=== PATIENT | male | born 1965 | race Caucasian/White ===

== ENCOUNTER 2023-03-25 19:12 | Emergency (ER) | payer OTHER ==
[~2023-03-25] VITALS: Ht 182.9 cm; Wt 142.9 kg
[~2023-03-25 19:12] MED LIST: ABIRATERONE AC250 MG PO; AMOCLA875 PO; AZIT250 PO; LOSA50 PO; MIRT15 PO; PRED5 PO; SIMV40 PO; TOPI50 PO; VENL75ER PO
[2023-03-25 19:41] LABS: BASOPHILS ABSOLUTE AUTO 0.02 K/mm3 (0.00-0.23); BASOPHILS PERCENT AUTO 0 % (0-2); EOSINOPHILS ABSOLUTE AUTO 0.05 K/mm3 (0.00-0.68); EOSINOPHILS PERCENT AUTO 1 % (0-6); Hematocrit 43.1 % (37.0-53.0); Hemoglobin 15.1 g/dL (13.5-17.5); IMMATURE GRAN ABSOLUTE AUTO 0.02 K/mm3 (0.00-0.10); IMMATURE GRAN PERCENT AUTO 0 % (0-1); LYMPHOCYTES ABSOLUTE AUTO 1.79 K/mm3 (0.84-5.20); LYMPHOCYTES PERCENT AUTO 19 % (21-46); MONOCYTES ABSOLUTE AUTO 0.86 K/mm3 (0.16-1.47); MONOCYTES PERCENT AUTO 9 % (4-13); Mean Corpuscular Volume 89 fL (80-100); Mean Platelet Volume 10.3 fL (9.1-12.4); NEUTROPHILS ABSOLUTE AUTO 6.59 K/mm3 (1.96-9.15); NEUTROPHILS PERCENT AUTO 71 % (41-73); Platelet Count 305 K/mm3 (150-400); RDW Coefficient Variation 12.7 % (11.7-14.2); RDW Standard Deviation 41.1 fL (35.1-46.3); Red Blood Cell Count 4.87 M/mm3 (4.30-5.90); White Blood Cell Count 9.33 K/mm3 (4.00-11.30)
[2023-03-25 20:01] LABS: Albumin, Blood 3.8 g/dL (3.4-5.0); Albumin/Globulin Ratio 1.1 (0.8-1.8); Bilirubin, Total 0.4 mg/dL (0.1-1.0); Bun/Creatinine Ratio 12.5 (12.0-20.0); Calcium, Blood 9.4 mg/dL (8.5-10.1); Creatinine, Blood 0.8 mg/dL (0.60-1.20); Globulin, Blood 3.6 g/dL (2.2-4.0); Potassium, Blood 3.9 mmol/L (3.5-5.5); Total Protein, Blood 7.4 g/dL (6.4-8.2)
[2023-03-25 21:30] VITALS: BP 144/95
[2023-03-25 22:09] LABS: Thyroid Stimulating Hormone 1.11 uIU/mL (0.360-4.800)
== END 2023-03-25 22:45 | disposition home or self-care (01) ==
LOC: ER 19:12
PROVIDERS: Emergency Medicine
DX: R53.1 Weakness (principal); I10 Essential (primary) hypertension; Z85.46 Personal history of malignant neoplasm of prostate; Z79.52 Long term (current) use of systemic steroids; Z79.899 Other long term (current) drug therapy
CPT/HCPCS: 71046; 80053; 84443; 84484; 85025; J7030

== ENCOUNTER 2023-10-20 19:17 | Emergency (ER) | payer OTHER ==
[~2023-10-20] VITALS: Ht 182.9 cm; Wt 145.2 kg
[~2023-10-20 19:17] MED LIST changes: +Ativan1 MG PO; +OLANZAPINE5 M1 PO; +OXYC5 PO
[2023-10-20 19:19] VITALS: BP 158/105
[2023-10-20 19:50] LABS: BASOPHILS ABSOLUTE AUTO 0.03 K/mm3 (0.00-0.23); BASOPHILS PERCENT AUTO 0 % (0-2); EOSINOPHILS ABSOLUTE AUTO 0.02 K/mm3 (0.00-0.68); EOSINOPHILS PERCENT AUTO 0 % (0-6); Hemoglobin 14.5 g/dL (13.5-17.5); IMMATURE GRAN ABSOLUTE AUTO 0.05 K/mm3 (0.00-0.10); IMMATURE GRAN PERCENT AUTO 0 % (0-1); LYMPHOCYTES PERCENT AUTO 13 % (21-46); MONOCYTES ABSOLUTE AUTO 0.94 K/mm3 (0.16-1.47); MONOCYTES PERCENT AUTO 7 % (4-13); Mean Corpuscular HGB 30.8 pg (26.0-34.0); Mean Corpuscular HGB Conc 34.5 g/dL (31.5-36.5); Mean Corpuscular Volume 89 fL (80-100); Mean Platelet Volume 9.9 fL (9.1-12.4); NEUTROPHILS PERCENT AUTO 79 % (41-73); Platelet Count 356 K/mm3 (150-400); RDW Coefficient Variation 12.4 % (11.7-14.2); RDW Standard Deviation 40.7 fL (35.1-46.3); Red Blood Cell Count 4.71 M/mm3 (4.30-5.90); White Blood Cell Count 12.84 K/mm3 (4.00-11.30)
== END 2023-10-20 20:31 | disposition home or self-care (01) ==
LOC: ER 19:17
PROVIDERS: Student in an Organized Health Care Education/Training Program
DX: R21 Rash and other nonspecific skin eruption (principal); I10 Essential (primary) hypertension; E03.9 Hypothyroidism, unspecified
CPT/HCPCS: 85025; 99283

== ENCOUNTER 2024-04-05 22:16 | Inpatient (IN) | payer OTHER ==
[~2024-04-05] VITALS: Ht 182.9 cm; Wt 151.2 kg
[~2024-04-05 22:16] MED LIST changes: +Adipex-P37.5 M1 PO; +EUTHYROX175 MC1 PO; +Enoxaparin 40 MG/0.4 ML SYR SC SCH; +Etomidate 2MG / ML 10ML Vial IV ONE; +OMEP20ER PO; +Rocuronium Bromide 10 MG/ML 5ML Injection IV ONE; +SOLIFENACIN SUCC5 MG PO
[2024-04-05] MEDS ORDERED: NS 1,000 ML IV ONE ×2 (22:20→23:35)
[2024-04-05] MEDS ORDERED: Magnesium Sulf 2 GM/Water 50ML 50 ML IV ONE (22:30)
[2024-04-05] MEDS ORDERED: NS 1,000 ML IV SCH (22:30)
[2024-04-05] MEDS ORDERED: DiphenhydrAMINE HCl 50 MG/ML 1ML Vial IV ONE (22:30)
[2024-04-05 22:34] LABS: BASOPHILS ABSOLUTE AUTO 0.04 K/mm3 (0.00-0.23); BASOPHILS PERCENT AUTO 0 % (0-2); EOSINOPHILS ABSOLUTE AUTO 0.14 K/mm3 (0.00-0.68); EOSINOPHILS PERCENT AUTO 1 % (0-6); Hematocrit 40.4 % (37.0-53.0); Hemoglobin 13.7 g/dL (13.5-17.5); IMMATURE GRAN ABSOLUTE AUTO 0.05 K/mm3 (0.00-0.10); IMMATURE GRAN PERCENT AUTO 0 % (0-1); LYMPHOCYTES ABSOLUTE AUTO 3.31 K/mm3 (0.84-5.20); LYMPHOCYTES PERCENT AUTO 26 % (21-46); MONOCYTES PERCENT AUTO 10 % (4-13); Mean Corpuscular HGB 31.6 pg (26.0-34.0); Mean Corpuscular HGB Conc 33.9 g/dL (31.5-36.5); Mean Corpuscular Volume 93 fL (80-100); Mean Platelet Volume 9.9 fL (9.1-12.4); NEUTROPHILS PERCENT AUTO 62 % (41-73); Platelet Count 296 K/mm3 (150-400); RDW Coefficient Variation 13.5 % (11.7-14.2); RDW Standard Deviation 46.1 fL (35.1-46.3); Red Blood Cell Count 4.34 M/mm3 (4.30-5.90); White Blood Cell Count 12.54 K/mm3 (4.00-11.30)
[2024-04-05 22:35] LABS: Calcium, Ionized (POC) 1.09 mmol/L (1.10-1.46); Chloride (POC) 103 mmol/L (98-108); Creatinine (POC) 1.3 mg/dL (0.8-1.3); Glucose (ISTAT POC) 119 mg/dL (70-99); Hemoglobin (POC) 14.6 g/dL (13.5-17.5); Potassium (POC) 3.6 mmol/L (3.5-5.5); Sodium (POC) 135 mmol/L (135-148); Total CO2 (POC) 20 mmol/L (21-32)
[2024-04-05] MEDS ORDERED: propofoL 100 ML IV ONE (22:40)
[2024-04-05 22:56] LABS: Ethanol (Alcohol), Blood, Med 6 mg/dL; Salicylate <1.7 mg/dL (2.8-20.0)
[2024-04-05 23:01] LABS: Acetaminophen, Random <2.0 ug/mL (10.0-30.0); Alanine Aminotransfer (ALT/SGP 23 U/L (12-78); Albumin, Blood 3.4 g/dL (3.4-5.0); Albumin/Globulin Ratio 0.8 (0.8-1.8); Alk Phos 148 U/L (50-136); Anion Gap 13 mmol/L (3-11); Aspartate Aminotrans (AST/SGOT 16 U/L (12-37); Bilirubin, Total 0.3 mg/dL (0.1-1.0); Blood Urea Nitrogen 29 mg/dL (8-24); Bun/Creatinine Ratio 25.2 (12.0-20.0); CO2, Blood 21 mmol/L (21-32); Calcium, Blood 8.8 mg/dL (8.5-10.1); Chloride, Blood 107 mmol/L (98-108); Creatinine, Blood 1.15 mg/dL (0.60-1.20); Globulin, Blood 4.1 g/dL (2.2-4.0); Glomerular Filtration Rate 73 (60-); Glucose, Blood 122 mg/dL (70-99); Potassium, Blood 3.6 mmol/L (3.5-5.5); Sodium, Blood 137 mmol/L (136-145); Total Protein, Blood 7.5 g/dL (6.4-8.2)
[2024-04-05 23:15] LABS: Source, Urine Clean Catch
[2024-04-05] MEDS ORDERED: Calcium Carbon500 MG PO (23:15)
[2024-04-05 23:18] LABS: Bilirubin, Urine Neg (Neg); Blood, Urine 5+ (Neg); Glucose Qualitative, Urine Neg (Neg); Ketones, Urine Neg (Neg); Leukocyte Esterase, Urine Neg (Neg); Nitrite, Urine Neg (Neg); Protein, Urine Neg (Neg); Specific Gravity, Urine 1.015 (1.003-1.022); Urobilinogen, Urine NORM (Normal); pH, Urine 6.5 (5.0-8.0)
[2024-04-05] MEDS ORDERED: PRED5 PO (23:18)
[2024-04-05] MEDS ORDERED: Charcoal 25 GM/120 ML Aqueous PO ONE (23:20)
[2024-04-05 23:26] LABS: Appearance, Urine Clear (Clear); Color, Urine Pale Yellow (P-Yellow)
[2024-04-05 23:27] LABS: Bacteria Rare /hpf; Squamous Epithelial Cells Rare /hpf (Few); White Blood Cells, Urine 0-2 /hpf (0-5)
[2024-04-05] MEDS ORDERED: Ondansetron HCl 2 MG / ML 2ML Vial IV PRN (23:35)
[2024-04-05 23:45] LABS: U Amphetamine Screen DETECTED; U Barbituate Screen Not Detected; U Benzodiazapine Screen Not Detected; U Buprenorphine Screen Not Detected; U Cannabinoids Screen Not Detected; U Cocaine Screen Not Detected; U Methadone Screen Not Detected; U Methamphetamine Screen Not Detected; U Opiates Screen Not Detected; U Oxycodone Screen Not Detected; U Phencyclidine Screen Not Detected
[2024-04-05] MEDS ORDERED: Aspir 8181 MG PO (23:58)
[2024-04-05] MEDS ORDERED: VITAMIN D31000 UNI1 PO (23:59)
[2024-04-06] VITALS (56 sets, daily range): BP systolic 82–146; BP diastolic 58–98
[2024-04-06 00:07] LABS: BASOPHILS ABSOLUTE AUTO 0.03 K/mm3 (0.00-0.23); BASOPHILS PERCENT AUTO 0 % (0-2); EOSINOPHILS ABSOLUTE AUTO 0.11 K/mm3 (0.00-0.68); EOSINOPHILS PERCENT AUTO 1 % (0-6); Hematocrit 36.8 % (37.0-53.0); Hemoglobin 12.5 g/dL (13.5-17.5); IMMATURE GRAN ABSOLUTE AUTO 0.08 K/mm3 (0.00-0.10); IMMATURE GRAN PERCENT AUTO 1 % (0-1); LYMPHOCYTES ABSOLUTE AUTO 2.21 K/mm3 (0.84-5.20); LYMPHOCYTES PERCENT AUTO 18 % (21-46); MONOCYTES ABSOLUTE AUTO 1.11 K/mm3 (0.16-1.47); MONOCYTES PERCENT AUTO 9 % (4-13); Mean Corpuscular HGB 31.3 pg (26.0-34.0); Mean Corpuscular Volume 92 fL (80-100); Mean Platelet Volume 10.1 fL (9.1-12.4); NEUTROPHILS ABSOLUTE AUTO 8.57 K/mm3 (1.96-9.15); NEUTROPHILS PERCENT AUTO 71 % (41-73); Platelet Count 285 K/mm3 (150-400); RDW Coefficient Variation 13.6 % (11.7-14.2); RDW Standard Deviation 46.3 fL (35.1-46.3); Red Blood Cell Count 3.99 M/mm3 (4.30-5.90); White Blood Cell Count 12.11 K/mm3 (4.00-11.30)
[2024-04-06 00:15] LABS: International Normalized Ratio 0.94; Prothrombin Time Results 10.1 Sec (9.7-11.5)
[2024-04-06 00:29] LABS: Ethanol (Alcohol), Blood, Med 6 mg/dL; Free Thyroxine 1.58 ng/dL (0.70-1.60); Magnesium, Blood 2.1 mg/dL (1.6-2.4); Salicylate <1.7 mg/dL (2.8-20.0)
[2024-04-06 00:31] LABS: Acetaminophen, Random <2.0 ug/mL (10.0-30.0); Alanine Aminotransfer (ALT/SGP 20 U/L (12-78); Albumin, Blood 3.1 g/dL (3.4-5.0); Albumin/Globulin Ratio 0.8 (0.8-1.8); Alk Phos 125 U/L (50-136); Anion Gap 14 mmol/L (3-11); Aspartate Aminotrans (AST/SGOT 31 U/L (12-37); Bilirubin, Total 0.5 mg/dL (0.1-1.0); Blood Urea Nitrogen 27 mg/dL (8-24); CO2, Blood 19 mmol/L (21-32); Calcium, Blood 8.1 mg/dL (8.5-10.1); Chloride, Blood 108 mmol/L (98-108); Creatinine, Blood 0.97 mg/dL (0.60-1.20); Globulin, Blood 3.7 g/dL (2.2-4.0); Glomerular Filtration Rate 89 (60-); Glucose, Blood 145 mg/dL (70-99); Potassium, Blood 3.7 mmol/L (3.5-5.5); Sodium, Blood 137 mmol/L (136-145); Total Protein, Blood 6.8 g/dL (6.4-8.2)
[2024-04-06] MEDS ORDERED: propofoL 100 ML IV SCH (01:35)
--- NOTE | 2024-04-06 02:19 | NUR ---
ASSUMED CARE PT WAS BROUGHT TO ICU FROM ED AT 0120. PT INTUBATED AND SEDATED. PROPOFOL GTT INFUSING, SEE FLOWSHEET. WHEN MOVING PT FROM GURNEY TO BED PT ATTEMPTING TO REACH FOR ETT WITH WEAKNESS. PT RESPONDS TO PAINFUL STIMULI, RASS -4, CPOT 0. PUPILS PINPOINT, SLUGGISH REACTION TO LIGHT. PT IN SOFT WRIST RESTRAINTS FOR SAFETY. ETT 8.0, 27 CM AT THE LIP, LUNG ORELLANA CLEAR T/O. VENT SETTINGS AC/VC 16/500/8/50%. O2 SATS > 90%, eTCO2 24. CARDIAC MONITORING REFLECTS NSR WITH 1ST DEGREE AV BLOCK. HR 90s, SBP 100s-110s. PIV TO LAC AND RAC. SNYDER PATENT AND DRAINING CLEAR/YELLOW URINE. OG TO LIS, OG TUBING STAINED BLACK FROM CHARCOAL ADMINISTERED IN ED.
[2024-04-06] MEDS ORDERED: Hydrogen Peroxide 1.5 % Solution MT SCH ×2 (04:00→16:00)
--- NOTE | 2024-04-06 05:22 | NUR ---
SHIFT SUMMARY PT REMAINS INTUBATED AND SEDATED. PROPOFOL GTT INFUSING, SEE FLOWSHEET. RASS -4, CPOT 0. PUPILS REMAIN PINPOINT. PT'S TEMPERATURE LOW, ESOPHAGEAL TEMP PROB PLACED, AT THIS TIME TEMP 95.6 DEGREES FAHRENHEIT AND SLOWLY INCREASING. PT BROUGHT WARM BLANKETS AND ROOM TEMPERATURE RAISED. PT REMAINS IN BILATERAL SOFT WRIST RESTRAINTS FOR SAFETY. VENT SETTINGS UNCHANGED, AC/VC 16/500/8/50%. O2 SATS > 90%. CARDIAC MONITORING REFLECTS NSR WITH FIRST DEGREE AV BLOCK, HR 70s-80s. SBP 90s-100s WITH MAP > 65. OG TO LIS, BLACK/THIN LIQUID NOTED FROM CHARCOAL ADMIN IN ED. PT'S ORAL SECRETIONS THAT ARE BEING SUCTIONED ARE ALSO BLACK. SNYDER PATENT AND DRAINING TO GRAVITY. NS INFUSING @ 75 mL/HR. PIV x2.
[2024-04-06] MEDS ORDERED: Cetylpyridinium Chloride 1 EA MISC MT SCH ×2 (08:00→20:00)
[2024-04-06 08:29] LABS: BASOPHILS ABSOLUTE AUTO 0.02 K/mm3 (0.00-0.23); BASOPHILS PERCENT AUTO 0 % (0-2); EOSINOPHILS ABSOLUTE AUTO 0.13 K/mm3 (0.00-0.68); EOSINOPHILS PERCENT AUTO 1 % (0-6); Hematocrit 43.7 % (37.0-53.0); Hemoglobin 14.4 g/dL (13.5-17.5); IMMATURE GRAN ABSOLUTE AUTO 0.03 K/mm3 (0.00-0.10); IMMATURE GRAN PERCENT AUTO 0 % (0-1); LYMPHOCYTES ABSOLUTE AUTO 1.86 K/mm3 (0.84-5.20); LYMPHOCYTES PERCENT AUTO 21 % (21-46); MONOCYTES ABSOLUTE AUTO 0.79 K/mm3 (0.16-1.47); MONOCYTES PERCENT AUTO 9 % (4-13); Mean Corpuscular HGB 31.2 pg (26.0-34.0); Mean Corpuscular Volume 95 fL (80-100); Mean Platelet Volume 9.8 fL (9.1-12.4); NEUTROPHILS ABSOLUTE AUTO 6.18 K/mm3 (1.96-9.15); NEUTROPHILS PERCENT AUTO 69 % (41-73); Platelet Count 234 K/mm3 (150-400); RDW Coefficient Variation 13.8 % (11.7-14.2); RDW Standard Deviation 47.8 fL (35.1-46.3); Red Blood Cell Count 4.62 M/mm3 (4.30-5.90); White Blood Cell Count 9.01 K/mm3 (4.00-11.30)
[2024-04-06 08:49] LABS: Albumin, Blood 3.1 g/dL (3.4-5.0); Albumin/Globulin Ratio 0.8 (0.8-1.8); Bilirubin, Total 0.4 mg/dL (0.1-1.0); Bun/Creatinine Ratio 24.3 (12.0-20.0); Calcium, Blood 8.5 mg/dL (8.5-10.1); Creatinine, Blood 0.91 mg/dL (0.60-1.20); Globulin, Blood 3.8 g/dL (2.2-4.0); Potassium, Blood 3.3 mmol/L (3.5-5.5); Total Protein, Blood 6.9 g/dL (6.4-8.2)
--- NOTE | 2024-04-06 09:32 | NUR ---
ASSUMED CARE BEDSIDE REPORT FROM KENDRICK NAPIER AT 0700. PT INTUBATED AND SEDATED. VENT SETTINGS AC/VC 16/500/8/40%. LUNGS CLEAR. SCANT SECRETIONS FROM ETT. SMALL AMOUNT OF BLACK ORAL SECRETIONS. PROPOFOL GTT INFUSING, RASS -4, TITRATING DOWN. +COUGH/GAG/SWALLOW. PUPILS PINPOINT. SPONT MOVEMENT TO BUE. RESPONSIVE TO PAINFUL STIMULI. 1 DEGREE BLOCK, RATE 70'S. BP STABLE. OGT TO LIS, BLACK EMESIS OUT. ABD OBESE, SOFT, NON TENDER, BT X 4. SNYDER PATENT, DRAINING CLEAR YELLOW URINE TO GRAVITY. PIV X 2. WILL CONTINUE PLAN OF CARE.
[2024-04-06] MEDS ORDERED: Potassium Chl 20MEQ/Water100ML 100 ML IV STA (09:33)
[2024-04-06] MEDS ORDERED: Pantoprazole Sodium 40 MG Injection IV SCH (13:00)
--- NOTE | 2024-04-06 17:54 | NUR ---
SHIFT SUMMARY PT REMAINS INTUBATED AND SEDATED. VENT SETTINGS AC/VC 16/500/5/40%. LUNGS CLEAR. SMALL AMOUNT OF YELLOW SECRETIONS FROM ETT THIS AFTERNOON. CONTINUES TO HAVE SMALL AMOUNT OF BLACK SECRETIONS ORALLY. PROPOFOL GTT INFUSING, PT WOKE BRIEFLY WHEN SEDATION LOWERED, THRASHING IN BED, COUGHING/GAGGING, TRIED TO REASSURE PT. PT ABLE TO MOVE TOES ON COMMAND, CONTINUED TO BE DISTRESSED, PROPOFOL INCREASED, RASS NOW -4 TO -5. PUPILS CONTINUE TO BE PINPOINT. 1 DEGREE, RAT 70'S, BP STABLE. OGT TO LIS, ABD OBESE, SOFT, NON TENDER. SNYDER PATENT, DRAINED 850 ML CLEAR YELLOW URINE TO GRAVITY. PIV X 2. WILL CONTINUE PLAN OF CARE UNTIL REPORT TO ONCOMING NURSE.
[2024-04-07] VITALS (29 sets, daily range): BP systolic 98–148; BP diastolic 66–92
--- NOTE | 2024-04-07 00:06 | NUR ---
PT IS VERY AGITATED WHEN PROPOFOL IS WEANED. PT IS NOT REDIRECTABLE AND WILL NOT CALM WITH REASSURANCE. HE GRASPS HEAVILY TO STAFF HANDS IS AND UNABLE TO BE CALMED. RESTRAINTS REMAIN IN PLACE, PROPOFOL ADJUSTED NECESSARY.
[2024-04-07] MEDS ORDERED: NS 250 ML IV PRN (01:10)
[2024-04-07 03:30] LABS: BASOPHILS ABSOLUTE AUTO 0.04 K/mm3 (0.00-0.23); BASOPHILS PERCENT AUTO 0 % (0-2); EOSINOPHILS ABSOLUTE AUTO 0.33 K/mm3 (0.00-0.68); EOSINOPHILS PERCENT AUTO 3 % (0-6); Hematocrit 37.1 % (37.0-53.0); Hemoglobin 12.4 g/dL (13.5-17.5); IMMATURE GRAN ABSOLUTE AUTO 0.05 K/mm3 (0.00-0.10); IMMATURE GRAN PERCENT AUTO 1 % (0-1); LYMPHOCYTES ABSOLUTE AUTO 1.56 K/mm3 (0.84-5.20); LYMPHOCYTES PERCENT AUTO 15 % (21-46); MONOCYTES ABSOLUTE AUTO 1.13 K/mm3 (0.16-1.47); MONOCYTES PERCENT AUTO 11 % (4-13); Mean Corpuscular HGB 31.1 pg (26.0-34.0); Mean Corpuscular HGB Conc 33.4 g/dL (31.5-36.5); Mean Corpuscular Volume 93 fL (80-100); NEUTROPHILS ABSOLUTE AUTO 7.09 K/mm3 (1.96-9.15); NEUTROPHILS PERCENT AUTO 70 % (41-73); Platelet Count 261 K/mm3 (150-400); RDW Coefficient Variation 13.9 % (11.7-14.2); RDW Standard Deviation 47.5 fL (35.1-46.3); Red Blood Cell Count 3.99 M/mm3 (4.30-5.90)
[2024-04-07 03:57] LABS: Albumin, Blood 2.7 g/dL (3.4-5.0); Anion Gap 9 mmol/L (3-11); Blood Urea Nitrogen 12 mg/dL (8-24); Bun/Creatinine Ratio 15.3 (12.0-20.0); CO2, Blood 24 mmol/L (21-32); Calcium, Blood 8.8 mg/dL (8.5-10.1); Chloride, Blood 114 mmol/L (98-108); Creatinine, Blood 0.78 mg/dL (0.60-1.20); Glomerular Filtration Rate 102 (60-); Glucose, Blood 103 mg/dL (70-99); Potassium, Blood 3.5 mmol/L (3.5-5.5); Sodium, Blood 143 mmol/L (136-145)
--- NOTE | 2024-04-07 05:45 | NUR ---
JULIAN REMAINS ON VENTILATOR, SETTINGS UNCHANGED T/O THE NIGHT. AC/VC 16/500/5/30%. PROPOFOL TITRATED T/O THE NIGHT TO VENT TOLERANCE. PT VERY EASILY AGITATED AND AGGRESSIVE WHEN SEDATION LIGHT. PT NOT REDIRECTABLE. MOVES ALL EXTREMITIES WELL. PIV X 2 INTACT. SNYDER TO GRAVITY DRAINAGE W/ YELLOW RETURN. OGT TO LIS WITH BLACK LIQUID RETURN. ORAL SUCTION ILLICITS BLACK RETURN WELL. WILL CONTINUE PLAN OF CARE WITH OPPORTUNITY FOR EXTUBATION IF HE PASSES HIS SBT.
--- NOTE | 2024-04-07 07:17 | NUR ---
ASSUMED CARE BEDSIDE REPORT FROM HITESH NAPIER AT 0700. PT INTUBATED AND SEDATED. VENT SETTINGS AC/VC 16/500/5/30%. LUNGS CLEAR. SMALL AMOUNT OF THICK YELLOW SECRETIONS FROM ETT. PROPOFOL GTT FOR SEDATION. PT RASS VARIES FROM +2 - -4. BECOMES VERY AGITATED c SIMULATION, NOT REDIRECTABLE, DOES NOT FOLLOW COMMANDS, THRASHES IN BED. MAEW. PUPILS 2 MM, REACTIVE. 1 DEGREE, RATE 70'S. BP STABLE. ABD OBESE, SOFT, NON TENDER, BT X 4. OGT TO LIS. SNYDER PATENT, DRAINING CLEAR YELLOW URINE TO GRAVITY. PIV X 2. WILL CONTINUE PLAN OF CARE.
[2024-04-07] MEDS ORDERED: LORazepam 2 MG/ML 1ML Injection IV PRN (09:05)
[2024-04-07] MEDS ORDERED: Haloperidol Lactate Inj. 5 MG/ML Injection IV PRN (09:05)
[2024-04-07] MEDS ORDERED: Potassium Chl 20MEQ/Water100ML 100 ML IV STA (10:09)
[2024-04-07] MEDS ORDERED: Misc. Tablet PO SCH ×2 (14:15)
[2024-04-07] MEDS ORDERED: Losartan Potassium 50 MG Tab PO SCH (14:15)
[2024-04-07] MEDS ORDERED: SOLIFENACIN 5 MG TAB PO SCH (15:17)
[2024-04-07] MEDS ORDERED: ABIRATERONE 250 MG PO SCH (16:00)
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
[2024-04-07] MEDS ORDERED: OLANZapine 5 MG Tab PO SCH (21:00)
[2024-04-07] MEDS ORDERED: Mirtazapine 15 MG Tab PO SCH (21:00)
[2024-04-07] MEDS ORDERED: Venlafaxine HCl 75 MG CapCR PO SCH (21:00)
[2024-04-07] MEDS ORDERED: PredniSONE 5 MG Tab PO SCH (21:00)
[2024-04-07] MEDS ORDERED: Calcium Carbonate 1,250 MG TABLET PO SCH (21:00)
[2024-04-07] MEDS ORDERED: Atorvastatin 10 MG Tab PO SCH (21:00)
[2024-04-08 03:31] LABS: BASOPHILS ABSOLUTE AUTO 0.03 K/mm3 (0.00-0.23); BASOPHILS PERCENT AUTO 0 % (0-2); EOSINOPHILS ABSOLUTE AUTO 0.27 K/mm3 (0.00-0.68); EOSINOPHILS PERCENT AUTO 3 % (0-6); Hematocrit 34.8 % (37.0-53.0); Hemoglobin 11.6 g/dL (13.5-17.5); IMMATURE GRAN ABSOLUTE AUTO 0.05 K/mm3 (0.00-0.10); IMMATURE GRAN PERCENT AUTO 1 % (0-1); LYMPHOCYTES ABSOLUTE AUTO 1.46 K/mm3 (0.84-5.20); LYMPHOCYTES PERCENT AUTO 14 % (21-46); MONOCYTES ABSOLUTE AUTO 0.96 K/mm3 (0.16-1.47); MONOCYTES PERCENT AUTO 9 % (4-13); Mean Corpuscular HGB 30.9 pg (26.0-34.0); Mean Corpuscular HGB Conc 33.3 g/dL (31.5-36.5); Mean Corpuscular Volume 93 fL (80-100); Mean Platelet Volume 9.8 fL (9.1-12.4); NEUTROPHILS ABSOLUTE AUTO 7.92 K/mm3 (1.96-9.15); NEUTROPHILS PERCENT AUTO 74 % (41-73); Platelet Count 256 K/mm3 (150-400); RDW Coefficient Variation 13.7 % (11.7-14.2); RDW Standard Deviation 47.1 fL (35.1-46.3); Red Blood Cell Count 3.75 M/mm3 (4.30-5.90); White Blood Cell Count 10.69 K/mm3 (4.00-11.30)
[2024-04-08 03:55] LABS: Albumin, Blood 2.7 g/dL (3.4-5.0); Albumin/Globulin Ratio 0.7 (0.8-1.8); Bilirubin, Total 0.3 mg/dL (0.1-1.0); Bun/Creatinine Ratio 10.9 (12.0-20.0); Calcium, Blood 8.6 mg/dL (8.5-10.1); Creatinine, Blood 0.83 mg/dL (0.60-1.20); Globulin, Blood 3.8 g/dL (2.2-4.0); Potassium, Blood 3.5 mmol/L (3.5-5.5); Total Protein, Blood 6.5 g/dL (6.4-8.2)
[2024-04-08 04:27] VITALS: BP 116/72
--- NOTE | 2024-04-08 05:20 | NUR ---
SHIFT SUMMERY PT HAS HAD AN UNEVENTFUL SHIFT. HE DENIES SUICIDAL IDEATIONS. HE HAS BEEN PLEASANT AND COOPERATIVE W/CARE. VS HAVE BEEN STABLE, PT HAS BEEN AFEBRILE. 1:1 SITTER CONTINUES AT BEDSIDE. PT IS ALERT AND ORIENTED X4, ABLE TO MAKE NEEDS KNOWN. NO ACUTE CHANGES OVERNIGHT.
[2024-04-08] MEDS ORDERED: Levothyroxine Sodium 0.175 MG TAB PO SCH (06:00)
[2024-04-08] MEDS ORDERED: Omeprazole 20 MG CapCR PO SCH (06:00)
[2024-04-08] MEDS ORDERED: Aspirin 81 MG TabEC PO SCH (09:00)
[2024-04-08] MEDS ORDERED: Cholecalciferol 1000 Unit Tablet (=25MCG) PO SCH (09:00)
[2024-04-08] MEDS ORDERED: Acetaminophen 325 MG TABLET PO PRN (10:45)
[2024-04-08 11:39] VITALS: BP 125/82
--- NOTE | 2024-04-08 12:11 | NUR ---
Transferred pt to medical floor room 345 at approximately 1050, report given to RN assuming care. All personal belonging sent with patient. 1:1 sitter accompanied pt upstairs.
[2024-04-08 15:57] VITALS: BP 127/85
--- NOTE | 2024-04-08 19:16 | NUR ---
PT ARRIVED A/O X4 WITHDRAWN BUT ANSWERING QUESTIONS AND COOPERATIVE WITH CARE. MD AT BEDSIDE AND TOOK PT OFF SI PRECAUSIONS. PT INDEPENDANT IN ROOM AND MAKES NEEDS KNOWN. STATES HE DOES NOT HAVE ANY INTENT IN HARMING SELF
[2024-04-08 19:25] VITALS: BP 127/67
[2024-04-08] MEDS ORDERED: Calcium Carbonate 1,250 MG TABLET PO SCH (21:00)
[2024-04-09 02:42] VITALS: BP 125/69
--- NOTE | 2024-04-09 04:59 | NUR ---
SHIFT SUMMARY PT A&OX4 AND ANSWERS QUESTIONS APPROPRIATELY. PT VSS, NO COMPLAINTS OF CHEST PAIN/PRESSURE OR SOB. PT VERBALIZES NO THOUGHTS OF SELF HARM. PT RECEIVED HS MEDICATIONS. PT SPENT MOST OF SHIFT IN BED RESTING WITH EYES CLOSED AND RESPIRATIONS EVEN AND UNLABORED. NO ACUTE EVENTS AT THIS TIME. PT LEFT IN A POSITION OF SAFETY AND COMFORT WITH FALL PRECAUTIONS IN PLACE AND CALL LIGHT IN REACH.
[2024-04-09 05:49] LABS: BASOPHILS ABSOLUTE AUTO 0.03 K/mm3 (0.00-0.23); BASOPHILS PERCENT AUTO 0 % (0-2); EOSINOPHILS ABSOLUTE AUTO 0.29 K/mm3 (0.00-0.68); EOSINOPHILS PERCENT AUTO 3 % (0-6); Hematocrit 35.6 % (37.0-53.0); Hemoglobin 11.9 g/dL (13.5-17.5); IMMATURE GRAN ABSOLUTE AUTO 0.03 K/mm3 (0.00-0.10); IMMATURE GRAN PERCENT AUTO 0 % (0-1); LYMPHOCYTES ABSOLUTE AUTO 1.65 K/mm3 (0.84-5.20); LYMPHOCYTES PERCENT AUTO 18 % (21-46); MONOCYTES ABSOLUTE AUTO 0.83 K/mm3 (0.16-1.47); MONOCYTES PERCENT AUTO 9 % (4-13); Mean Corpuscular HGB 31.3 pg (26.0-34.0); Mean Corpuscular HGB Conc 33.4 g/dL (31.5-36.5); Mean Corpuscular Volume 94 fL (80-100); Mean Platelet Volume 10.2 fL (9.1-12.4); NEUTROPHILS ABSOLUTE AUTO 6.26 K/mm3 (1.96-9.15); NEUTROPHILS PERCENT AUTO 69 % (41-73); Platelet Count 245 K/mm3 (150-400); RDW Coefficient Variation 13.6 % (11.7-14.2); RDW Standard Deviation 46.3 fL (35.1-46.3); White Blood Cell Count 9.09 K/mm3 (4.00-11.30)
[2024-04-09 06:20] LABS: Albumin, Blood 2.5 g/dL (3.4-5.0); Albumin/Globulin Ratio 0.7 (0.8-1.8); Bilirubin, Total 0.3 mg/dL (0.1-1.0); Bun/Creatinine Ratio 10.7 (12.0-20.0); Calcium, Blood 8.6 mg/dL (8.5-10.1); Creatinine, Blood 0.75 mg/dL (0.60-1.20); Globulin, Blood 3.6 g/dL (2.2-4.0); Potassium, Blood 3.7 mmol/L (3.5-5.5); Total Protein, Blood 6.1 g/dL (6.4-8.2)
[2024-04-09 07:28] VITALS: BP 166/107
[2024-04-09 08:53] VITALS: BP 140/100
[2024-04-09 08:56] VITALS: BP 132/82
[2024-04-09] MEDS ORDERED: Polyethylene Glycol 3350 17 gm PO ONE (10:10)
--- NOTE | 2024-04-09 14:09 | NUR ---
DISCHARGE SUMMARY PT DISCHARGED TO HOME. PT LEFT ROOM WITH STEADY GAIT WITH THIS NURSE ESCORTING PT OUT TO WAIT FOR HIS FRIEND TO PICK HIM UP AT [facility]. ALL DISCHARGE INSTRUCTIONS DISCUSSED, ALL QUESTIONS ANSWERED. PT AGREES TO FOLLOW UP WITH PCP ON 04/16 AT 11:00 AM. AND TO TAKE MEDICATIONS ONLY PRESCRIBED. IV DC'D AND BELONGINGS RETURNED, INCLUDING THE MEDICATIONS FROM PHARMACY.
== END 2024-04-09 13:14 | disposition home or self-care (01) | DRG 917 ==
LOC: ER 22:16 → ERHOLD 23:29 → MEDS 23:29 → ICUE 23:29 → MEDS 04-08 11:00 → ENPENDDIS 04-09 11:29 → MEDS 04-09 13:14
PROVIDERS: Family Medicine; Hospitalist; Internal Medicine Critical Care Medicine; Student in an Organized Health Care Education/Training Program; ADMIT Internal Medicine
PROC: 0BH17EZ Insertion of Endotracheal Airway into Trachea, Via Natural or Artificial Opening (ICD-10-PCS; principal; 2024-04-05)
PROC: 5A1945Z Respiratory Ventilation, 24-96 Consecutive Hours (ICD-10-PCS; 2024-04-05)
DX: T43.021A Poisoning by tetracyclic antidepressants, accidental (unintentional), initial encounter (principal); G92.8 Other toxic encephalopathy; J96.01 Acute respiratory failure with hypoxia; C77.2 Secondary and unspecified malignant neoplasm of intra-abdominal lymph nodes; Z68.43 Body mass index [BMI] 50.0-59.9, adult; T43.591A Poisoning by other antipsychotics and neuroleptics, accidental (unintentional), initial encounter; I10 Essential (primary) hypertension; C61 Malignant neoplasm of prostate; E66.01 Morbid (severe) obesity due to excess calories; E06.3 Autoimmune thyroiditis; E87.6 Hypokalemia; K21.9 Gastro-esophageal reflux disease without esophagitis; G47.33 Obstructive sleep apnea (adult) (pediatric); E78.5 Hyperlipidemia, unspecified; F32.9 Major depressive disorder, single episode, unspecified; Z79.890 Hormone replacement therapy; Z79.82 Long term (current) use of aspirin; Z79.899 Other long term (current) drug therapy; Z79.52 Long term (current) use of systemic steroids
CPT/HCPCS: 31500; 36415; 51702; 71045; 80047; 80053; 80069; 81001; 83735; 83880; 84439; 84443; 85014; 85025; 85610; 87070; 87205; 93005; 93010; 94002; 94003; 96361-59; 96374-59; 96375-59; 99291-25; A9270; C9113; G0480; J1200; J1630; J1650; J2704; J3475; J3480; J7030; J7050; J7512

== ENCOUNTER 2024-07-23 14:26 | Emergency (ER) | payer MEDICARE, OTHER ==
[~2024-07-23] VITALS: Ht 182.9 cm; Wt 154.2 kg
[~2024-07-23 14:26] MED LIST changes: +Aspir 8181 MG PO; +Calcium Carbon500 MG PO; -Enoxaparin 40 MG/0.4 ML SYR SC SCH; -Etomidate 2MG / ML 10ML Vial IV ONE; -Rocuronium Bromide 10 MG/ML 5ML Injection IV ONE; +VITAMIN D31000 UNI1 PO
[2024-07-23 16:50] VITALS: BP 157/101
[2024-07-23] MEDS ORDERED: HyDROXyzine HCl 25 MG Tab PO ONE (17:55)
== END 2024-07-23 18:41 | disposition home or self-care (01) ==
LOC: ER 14:26
DX: F41.9 Anxiety disorder, unspecified (principal); I10 Essential (primary) hypertension; E03.9 Hypothyroidism, unspecified; C61 Malignant neoplasm of prostate; C77.2 Secondary and unspecified malignant neoplasm of intra-abdominal lymph nodes; Z79.899 Other long term (current) drug therapy; Z79.82 Long term (current) use of aspirin; Z79.52 Long term (current) use of systemic steroids
CPT/HCPCS: 99283; A9270

== ENCOUNTER → 2024-07-27 | Outpatient (CLI) | payer MEDICARE, OTHER ==
[2024-07-27 10:57] LABS: BASOPHILS ABSOLUTE AUTO 0.05 K/mm3 (0.00-0.23); BASOPHILS PERCENT AUTO 1 % (0-2); EOSINOPHILS ABSOLUTE AUTO 0.09 K/mm3 (0.00-0.68); EOSINOPHILS PERCENT AUTO 1 % (0-6); Hematocrit 39.4 % (37.0-53.0); Hemoglobin 13.4 g/dL (13.5-17.5); IMMATURE GRAN ABSOLUTE AUTO 0.04 K/mm3 (0.00-0.10); IMMATURE GRAN PERCENT AUTO 1 % (0-1); LYMPHOCYTES ABSOLUTE AUTO 1.58 K/mm3 (0.84-5.20); LYMPHOCYTES PERCENT AUTO 18 % (21-46); MONOCYTES ABSOLUTE AUTO 0.67 K/mm3 (0.16-1.47); MONOCYTES PERCENT AUTO 8 % (4-13); Mean Corpuscular HGB 32.6 pg (26.0-34.0); Mean Corpuscular Volume 96 fL (80-100); Mean Platelet Volume 9.8 fL (9.1-12.4); NEUTROPHILS ABSOLUTE AUTO 6.29 K/mm3 (1.96-9.15); NEUTROPHILS PERCENT AUTO 72 % (41-73); Platelet Count 308 K/mm3 (150-400); RDW Coefficient Variation 13.9 % (11.7-14.2); RDW Standard Deviation 48.7 fL (35.1-46.3); Red Blood Cell Count 4.11 M/mm3 (4.30-5.90); White Blood Cell Count 8.72 K/mm3 (4.00-11.30)
[2024-07-27 11:09] LABS: Albumin, Blood 3.1 g/dL (3.4-5.0); Albumin/Globulin Ratio 0.9 (0.8-1.8); Bilirubin, Total 0.1 mg/dL (0.1-1.0); Bun/Creatinine Ratio 15.2 (12.0-20.0); Calcium, Blood 8.5 mg/dL (8.5-10.1); Creatinine, Blood 0.99 mg/dL (0.60-1.20); Globulin, Blood 3.6 g/dL (2.2-4.0); Potassium, Blood 4.1 mmol/L (3.5-5.5); Total Protein, Blood 6.7 g/dL (6.4-8.2)
[2024-07-27 12:58] LABS: Prostate Specific Antigen 0.026 ng/mL (0.000-4.000)
[2024-07-27 13:00] LABS: PSA, %Free Unable to Calculate %; PSA, Free <0.015 ng/mL
== END | disposition home or self-care (01) ==
LOC: LAB SHORT 10:54 → LAB 10:54
PROVIDERS: Internal Medicine
DX: C79.82 Secondary malignant neoplasm of genital organs (principal)
CPT/HCPCS: 80053; 84153; 84154; 85025

== ENCOUNTER 2024-08-02 10:41 | Emergency (ER) | payer MEDICARE, OTHER ==
[~2024-08-02] VITALS: Ht 185.4 cm; Wt 161.0 kg
[2024-08-02 10:44] VITALS: BP 166/115
[2024-08-02] MEDS ORDERED: Vibramycin100 MG PO (14:48)
[2024-08-02] MEDS ORDERED: Doxycycline Hyclate 100 MG TAB PO ONE (14:50)
== END 2024-08-02 15:15 | disposition home or self-care (01) ==
LOC: ER 10:41
DX: L03.211 Cellulitis of face (principal)
CPT/HCPCS: 99283; A9270

== ENCOUNTER 2024-08-06 21:23 | Emergency (ER) | payer MEDICARE, OTHER ==
[~2024-08-06] VITALS: Ht 182.9 cm; Wt 161.0 kg
[~2024-08-06 21:23] MED LIST changes: +Vibramycin100 MG PO
[2024-08-06 21:58] LABS: BASOPHILS ABSOLUTE AUTO 0.05 K/mm3 (0.00-0.23); BASOPHILS PERCENT AUTO 0 % (0-2); EOSINOPHILS ABSOLUTE AUTO 0.15 K/mm3 (0.00-0.68); EOSINOPHILS PERCENT AUTO 1 % (0-6); Hematocrit 38.7 % (37.0-53.0); Hemoglobin 13.1 g/dL (13.5-17.5); IMMATURE GRAN ABSOLUTE AUTO 0.04 K/mm3 (0.00-0.10); IMMATURE GRAN PERCENT AUTO 0 % (0-1); LYMPHOCYTES ABSOLUTE AUTO 3.17 K/mm3 (0.84-5.20); LYMPHOCYTES PERCENT AUTO 28 % (21-46); MONOCYTES ABSOLUTE AUTO 0.93 K/mm3 (0.16-1.47); MONOCYTES PERCENT AUTO 8 % (4-13); Mean Corpuscular HGB 31.9 pg (26.0-34.0); Mean Corpuscular HGB Conc 33.9 g/dL (31.5-36.5); Mean Corpuscular Volume 94 fL (80-100); Mean Platelet Volume 9.9 fL (9.1-12.4); NEUTROPHILS PERCENT AUTO 61 % (41-73); Platelet Count 290 K/mm3 (150-400); RDW Coefficient Variation 13.6 % (11.7-14.2); RDW Standard Deviation 47.5 fL (35.1-46.3); Red Blood Cell Count 4.11 M/mm3 (4.30-5.90); White Blood Cell Count 11.24 K/mm3 (4.00-11.30)
[2024-08-06 22:15] LABS: Albumin, Blood 3.3 g/dL (3.4-5.0); Albumin/Globulin Ratio 0.9 (0.8-1.8); Bilirubin, Total 0.2 mg/dL (0.1-1.0); Bun/Creatinine Ratio 17.8 (12.0-20.0); Calcium, Blood 8.9 mg/dL (8.5-10.1); Creatinine, Blood 1.01 mg/dL (0.60-1.20); Globulin, Blood 3.5 g/dL (2.2-4.0); Potassium, Blood 3.8 mmol/L (3.5-5.5); Total Protein, Blood 6.8 g/dL (6.4-8.2)
[2024-08-07 05:14] LABS: Hematocrit 36.2 % (37.0-53.0); Hemoglobin 12.3 g/dL (13.5-17.5)
[2024-08-07 05:30] LABS: Prothrombin Time Results 10.7 Sec (9.7-11.5)
[2024-08-07 05:35] VITALS: BP 125/76
== END 2024-08-07 05:40 | disposition home or self-care (01) ==
LOC: ER 21:23
PROVIDERS: Emergency Medicine
DX: K92.1 Melena (principal); D64.9 Anemia, unspecified; E03.9 Hypothyroidism, unspecified; I10 Essential (primary) hypertension; E06.3 Autoimmune thyroiditis; E73.9 Lactose intolerance, unspecified; R73.9 Hyperglycemia, unspecified; Z68.42 Body mass index [BMI] 45.0-49.9, adult; Z79.82 Long term (current) use of aspirin; Z79.890 Hormone replacement therapy; Z79.899 Other long term (current) drug therapy
CPT/HCPCS: 36415; 80053; 83036; 83690; 84443; 85014; 85018; 85025; 85610; 85730; 86850; 86900; 86901; 99284-25

== ENCOUNTER 2024-08-13 17:55 | Emergency (ER) | payer MEDICARE, OTHER ==
[~2024-08-13] VITALS: Ht 182.9 cm; Wt 161.0 kg
[2024-08-13 18:01] VITALS: BP 162/109
[2024-08-13] MEDS ORDERED: Ketorolac Tromethamine 15mg Vial IM ONE (19:35)
[2024-08-13] MEDS ORDERED: Lidocaine 4% 1 Patch TOP ONE (19:35)
[2024-08-13] MEDS ORDERED: RX Prepack 6 Tabs Oxycodone 5mg UD ONE (19:40)
[2024-08-13] MEDS ORDERED: OxyCODONE HCL 5 MG TAB PO ONE (19:45)
[2024-08-13] MEDS ORDERED: ASPERFLEX1 EACH TOP (19:46)
== END 2024-08-13 20:00 | disposition home or self-care (01) ==
LOC: ER 17:55
DX: R07.81 Pleurodynia (principal); E03.9 Hypothyroidism, unspecified; I10 Essential (primary) hypertension; Z79.52 Long term (current) use of systemic steroids; Z79.82 Long term (current) use of aspirin; Z79.890 Hormone replacement therapy; Z79.899 Other long term (current) drug therapy; W18.30XA Fall on same level, unspecified, initial encounter
CPT/HCPCS: 71101; 96372; 99283-25; A9270; J1885

== ENCOUNTER 2024-08-26 22:44 | Emergency (ER) | payer MEDICARE, OTHER ==
[~2024-08-26] VITALS: Ht 182.9 cm; Wt 163.3 kg
[~2024-08-26 22:44] MED LIST changes: +ASPERFLEX1 EACH TOP
[2024-08-26] MEDS ORDERED: Ondansetron HCl 2 MG / ML 2ML Vial IV PRN (22:55)
[2024-08-26 23:23] LABS: BASOPHILS ABSOLUTE AUTO 0.04 K/mm3 (0.00-0.23); BASOPHILS PERCENT AUTO 0 % (0-2); EOSINOPHILS ABSOLUTE AUTO 0.09 K/mm3 (0.00-0.68); EOSINOPHILS PERCENT AUTO 1 % (0-6); Hematocrit 40.2 % (37.0-53.0); Hemoglobin 13.9 g/dL (13.5-17.5); IMMATURE GRAN ABSOLUTE AUTO 0.05 K/mm3 (0.00-0.10); IMMATURE GRAN PERCENT AUTO 0 % (0-1); LYMPHOCYTES ABSOLUTE AUTO 2.79 K/mm3 (0.84-5.20); LYMPHOCYTES PERCENT AUTO 23 % (21-46); MONOCYTES ABSOLUTE AUTO 0.87 K/mm3 (0.16-1.47); MONOCYTES PERCENT AUTO 7 % (4-13); Mean Corpuscular HGB 32.5 pg (26.0-34.0); Mean Corpuscular HGB Conc 34.6 g/dL (31.5-36.5); Mean Corpuscular Volume 94 fL (80-100); NEUTROPHILS ABSOLUTE AUTO 8.27 K/mm3 (1.96-9.15); NEUTROPHILS PERCENT AUTO 68 % (41-73); RDW Coefficient Variation 13.6 % (11.7-14.2); RDW Standard Deviation 46.9 fL (35.1-46.3); Red Blood Cell Count 4.28 M/mm3 (4.30-5.90); White Blood Cell Count 12.11 K/mm3 (4.00-11.30)
[2024-08-26 23:24] LABS: Platelet Count 305 K/mm3 (150-400)
[2024-08-26 23:37] LABS: Albumin, Blood 3.5 g/dL (3.4-5.0); Albumin/Globulin Ratio 0.9 (0.8-1.8); Bilirubin, Total 0.2 mg/dL (0.1-1.0); Bun/Creatinine Ratio 24.2 (12.0-20.0); Calcium, Blood 8.6 mg/dL (8.5-10.1); Creatinine, Blood 0.87 mg/dL (0.60-1.20); Globulin, Blood 3.9 g/dL (2.2-4.0); Potassium, Blood 3.8 mmol/L (3.5-5.5); Total Protein, Blood 7.4 g/dL (6.4-8.2)
[2024-08-26 23:46] LABS: International Normalized Ratio 0.94; Prothrombin Time Results 10.1 Sec (9.7-11.5)
[2024-08-27] MEDS ORDERED: Methocarbamol500 MG PO (02:16)
[2024-08-27] MEDS ORDERED: ZYTIGA250 MG (02:17)
[2024-08-27] MEDS ORDERED: FentaNYL Citrate 50 MCG/ML 2 ML Injection IV ONE (02:35)
[2024-08-27] MEDS ORDERED: Ondansetron HCl 2 MG / ML 2ML Vial IV ONE (02:35)
[2024-08-27] MEDS ORDERED: Morphine Sulfate 4 MG/1 ML Injection IV ONE (03:20)
[2024-08-27 05:30] VITALS: BP 140/80
[2024-08-27] MEDS ORDERED: METR500 PO (05:38)
[2024-08-27] MEDS ORDERED: CIPR500 PO (05:38)
== END 2024-08-27 05:30 | disposition home or self-care (01) ==
LOC: ER 22:44
PROVIDERS: Emergency Medicine
DX: K52.9 Noninfective gastroenteritis and colitis, unspecified (principal); I10 Essential (primary) hypertension; E03.9 Hypothyroidism, unspecified; Z79.82 Long term (current) use of aspirin; Z79.890 Hormone replacement therapy
CPT/HCPCS: 74177; 80053; 85025; 85610; 85730; 86850; 86900; 86901; 96374-59; 96375; 99285; J2270; J2405; J3010; Q9967